=== PATIENT | male | born 1965 | race African-American/Black ===

== ENCOUNTER → 2016-11-03 | Day surgery (SDC) | payer OTHER, MEDICARE ==
[~2016-11-03] MED LIST: AMBIEN PO; BUDEPRION SR100 M1 PO; BUDEPRION SR100 MG PO; CAPSICUM OLEORE TP; CAPZASIN TP; CYMBALTA20 MG PO; DIAZEPAM PO; DIAZEPAM5 MG/M2 PO; EFFEXOR PO; FLEXERIL PO; FLEXERIL10 MG PO; FLUOXETINE HCL20 M1 PO; FLUOXETINE20 MG/5 ML; GABAPENTIN400 MG PO; LAMICTAL PO; LAMICTAL100 MG PO; LAMISIL250 MG PO; LAVITRA PO; LEVITRA PO; LIDODERM30 EA TOP; LORTAB 10/500 T1 TAB PO; NEURONTIN PO; NEURONTIN300 MG PO; NEURONTIN600 MG PO; OXYCONTIN10 MG PO; PERCOCET 7.5/321 TAB PO; PERCOCET10 PO; PERCOCET7.5 PO; VIAGRA PO; WELLBUTRIN100 MG PO; ZANAFLEX4 M1 PO
--- NOTE | ~2016-11-03 | OR ---
Unit #: [id number] #: [id number] Patient: STEPHANIE GRAHAM [id number] [address] [place], [place] [address] [id number] O MR#: [id number] NAME: STEPHANIE GRAHAM ROOM: Date of Procedure: 11/03/2016 Admission Date: 11/03/2016 Surgeon: Renato Cisneros M.D. : 1965 Attending Physician: Renato Cisneros M.D. Primary Care Physician: Jack Hadley M.D. OPERATIVE REPORT JOB NOTE: CC: [facility] PREOPERATIVE DIAGNOSIS Chronic regional pain syndrome of lower extremity. POSTOPERATIVE DIAGNOSIS Chronic regional pain syndrome of lower extremity. PROCEDURE PERFORMED Lumbar sympathetic block with intravenous sedation and fluoroscopic guidance for needle localization. INDICATIONS FOR PROCEDURE The patient is a 51-year-old male with previously mentioned diagnosis. He is treated medically with p.r.n. sympathetic blockade. That is going to help his pain when it flares up. He states he has rougher time during the winter, states he has recently been off his topical cream, which he feels made the pain come back or it could be more significant. Based on history, pathology, and symptomatology, plan is to repeat a sympathetic block today. DESCRIPTION OF PROCEDURE The patient was placed in a prone position. Standard monitors were applied. 4 mg of Versed were given for sedation and anxiolysis, which were adequate. Vital signs remained stable. Sterile prep and drape then of the lumbar area was performed. The skin then at the L4-5 level was localized with 1% lidocaine. An 18-gauge Hustead needle was then advanced via loss of resistance technique and fluoroscopic guidance in toward the epidural space. The patient did not complain of any pain or paresthesia during needle advancement. After confirming proper positioning with fluoroscopy and radiographic contrast, a dose of 10 mL of 0.25% bupivacaine were deposited. Negative intermittent aspiration every 2 to 3 mL. The patient tolerated the procedure otherwise well and was discharged to the recovery room in stable condition. Dictated by... Renato Cisneros M.D. LHP/dulce maria Unit #: [id number] #: [id number] Patient: STEPHANIE GRAHAM TD: 11/03/2016 21:52 JOB #: [id number] OPERATIVE REPORT X Renato Cisneros MD X PROCEDURE OPERATIVE NOTE
== END | disposition home or self-care (01) ==
LOC: CCSC 07:36
DX: G90.529 Complex regional pain syndrome I of unspecified lower limb (principal)
CPT/HCPCS: J1040; J2250

== ENCOUNTER → 2017-01-07 | Day surgery (SDC) | payer OTHER, MEDICARE ==
--- NOTE | ~2017-01-07 | OR ---
Unit #: [id number] #: [id number] Patient: STEPHANIE GRAHAM [id number] [address] [place], [place] [address] [id number] O MR#: [id number] NAME: STEPHANIE GRAHAM. ROOM: Date of Procedure: 01/07/2017 Admission Date: 01/07/2017 Surgeon: Renato Cisneros M.D. : 1965 Attending Physician: Renato Cisneros M.D. Primary Care Physician: Jack Hadley M.D. OPERATIVE REPORT PREOPERATIVE DIAGNOSIS Chronic regional pain syndrome of the lower extremity. POSTOPERATIVE DIAGNOSIS Chronic regional pain syndrome of the lower extremity. PROCEDURE PERFORMED Lumbar sympathetic block with intravenous sedation and fluoroscopic guidance for needle localization. INDICATIONS FOR PROCEDURE The patient is a 51-year-old male with significant left lower extremity issues secondary to CRPS. He had been through an extensive conservative treatment with no sustained significant improvement. He is treated medically with p.r.n. sympathetic blocks, which given the only probable relief of the symptom complex. He has had re-flare of the pain, which is severe. Plan is to repeat injection today. DESCRIPTION OF PROCEDURE The patient was placed in a prone position. Standard monitors were applied. 4 mg of Versed were given for sedation and anxiolysis, which were adequate. Vital signs remained stable. A long 22-gauge Quincke point spinal was then advanced via right paramedian approach with biplanar fluoroscopic guidance to the lateral border of the L1 vertebral body. The needle was worked up to the anterolateral border. Position was confirmed with biplanar fluoroscopy and radiographic contrast. After confirming proper positioning, a dose of 10 mL of 0.25% bupivacaine were deposited. There was negative intermittent aspiration. The patient tolerated the procedure otherwise well and was discharged to the recovery room in stable condition. Dictated by... Sim Roblero/dulce maria TD: 01/08/2017 03:04 JOB #: [id number] Unit #: [id number] #: [id number] Patient: STEPHANIE GRAHAM OPERATIVE REPORT Page 1 of 1 X Renato Cisneros MD X PROCEDURE OPERATIVE NOTE
== END | disposition home or self-care (01) ==
LOC: CCSC 07:27
DX: G90.522 Complex regional pain syndrome I of left lower limb (principal)
CPT/HCPCS: J1040; J2250

== ENCOUNTER → 2017-03-04 | Day surgery (SDC) | payer OTHER, MEDICARE ==
--- NOTE | ~2017-03-04 | OR ---
Unit #: [id number] #: [id number] Patient: STEPHANIE GRAHAM [id number] [address] [place], [place] [address] [id number] O MR#: [id number] NAME: STEPHANIE GRAHAM ROOM: Date of Procedure: 03/04/2017 Admission Date: 03/04/2017 Surgeon: Renato Cisneros M.D. : 1965 Attending Physician: Renato Cisneros M.D. Referring Physician: Renato Cisneros M.D. Primary Care Physician: Jack Hadley M.D. OPERATIVE REPORT PREOPERATIVE DIAGNOSIS Chronic regional pain syndrome, lower extremity. POSTOPERATIVE DIAGNOSIS Chronic regional pain syndrome, lower extremity. PROCEDURE PERFORMED Lumbar sympathetic block with intravenous sedation and fluoroscopic guidance for needle localization. INDICATIONS FOR PROCEDURE The patient is a 51-year-old male with previously mentioned diagnosis developed after reconstructive ankle surgery. He failed extensive rehabilitation, medical, and interventional treatments as well as spinal cord stimulation. He is treated medically now with p.r.n. sympathetic blockade which has been able to help if the pain does flare significantly. Last injection was done almost 2 months ago. DESCRIPTION OF PROCEDURE The patient was placed in a prone position. Standard monitors were applied. 4 mg of Versed were given for sedation and anxiolysis, which were adequate. Vital signs remained stable. Sterile prep and drape then of the thoracolumbar area was performed. The skin then to the left of midline was localized with 1% lidocaine. A long 22-gauge Quincke point spinal needle was then advanced with biplanar fluoroscopic guidance to the lateral border of the L1 vertebral body. The needle was brought up to the anterolateral border. Position was confirmed with loss of resistance technique and biplanar fluoroscopic guidance with radiographic contrast. After confirming proper positioning, 10 mL of 0.25% bupivacaine were deposited. There was negative intermittent aspiration every 2 to 3 mL. The patient tolerated the procedure otherwise well and was discharged to the recovery room in stable condition. Dictated by... Sim Roblero/marinel TD: 03/05/2017 04:58 JOB #: [id number] Unit #: [id number] #: [id number] Patient: STEPHANIE GRAHAM OPERATIVE REPORT Page 1 of 1 X Renato Cisneros MD X PROCEDURE OPERATIVE NOTE
== END | disposition home or self-care (01) ==
LOC: CCSC 07:54
DX: G90.522 Complex regional pain syndrome I of left lower limb (principal); Z98.890 Other specified postprocedural states
CPT/HCPCS: J1040; J2250

== ENCOUNTER → 2017-05-13 | Day surgery (SDC) | payer OTHER, MEDICARE ==
--- NOTE | ~2017-05-13 | OR ---
Unit #: [id number] #: [id number] Patient: STEPHANIE GRAHAM [id number] [address] [place], [place] [address] [id number] O MR#: [id number] NAME: STEPHANIE GRAHAM ROOM: Date of Procedure: 05/13/2017 Admission Date: 05/13/2017 Surgeon: Renato Cisneros M.D. : 1965 Attending Physician: Renato Cisneros M.D. Referring Physician: Renato Cisneros M.D. Primary Care Physician: Jack Hadley M.D. OPERATIVE REPORT PREOPERATIVE DIAGNOSIS Chronic regional pain syndrome in lower extremity. POSTOPERATIVE DIAGNOSIS Chronic regional pain syndrome in lower extremity. PROCEDURE PERFORMED Lumbar sympathetic block with intravenous sedation and fluoroscopic guidance for needle localization. INDICATIONS FOR PROCEDURE The patient is a 51-year-old male with flare of pain which is a chronic issue due to his CRPS affecting his left lower extremity. He has failed extensive rehabilitative treatment. He failed spinal cord stimulation. He was medically managed partially, but the pain flares. Sympathetic blockade has been the only modality to help settle severe degree of symptomatology. Last injection was done over 2 months ago. He did very well until just recently. We are going to proceed with a repeat injection based on his history, pathology, and response to treatment. DESCRIPTION OF PROCEDURE The patient was placed in the prone position, standard monitors were applied, 4 mg of Versed were given for sedation and anxiolysis, which were adequate. Vital signs remained stable. Sterile prep and draping of the thoracolumbar area were performed. The skin then to the left of the midline lateral to the L1 vertebral body was localized with 1% lidocaine. A long 22-gauge Quincke point spinal needle was advanced with biplanar fluoroscopic guidance and loss resistance technique to the lateral border of the L1 vertebral body. Then, the needle was walked up to the anterolateral border with loss of resistance technique and radiographic contrast and fluoroscopy, the proper position of the needle was confirmed. The patient did not complain of pain or paresthesia during needle placement. After confirming proper positioning, 10 mL of 0.25% bupivacaine were deposited. There was negative intermittent aspiration every 2 to 3 mL. The patient tolerated the procedure otherwise well and was discharged to the recovery room in stable condition. Dictated by... Renato Cisneros M.D. Unit #: [id number] #: [id number] Patient: STEPHANIE GRAHAM LHP/dulce maria TD: 05/14/2017 03:59 JOB #: [id number] OPERATIVE REPORT Page 1 of 1 X Renato Cisneros MD X PROCEDURE OPERATIVE NOTE
== END | disposition home or self-care (01) ==
LOC: CCSC 07:13
DX: G90.522 Complex regional pain syndrome I of left lower limb (principal); M19.90 Unspecified osteoarthritis, unspecified site; F32.9 Major depressive disorder, single episode, unspecified; Z79.891 Long term (current) use of opiate analgesic; Z79.899 Other long term (current) drug therapy
CPT/HCPCS: J2250